=== PATIENT | female | born 1995 | race Caucasian/White ===

== ENCOUNTER → 2020-11-12 | Outpatient (CLI) | payer OTHER ==
[2020-11-13 10:14] LABS: VITAMIN D, 25-HYDROXY 18.8 ng/mL (30.0-100.0)
[2020-11-13 13:09] LABS: ALDOLASE 3.9 U/L (3.3-10.3)
== END ==
LOC: LAB 13:37
PROVIDERS: Internal Medicine
DX: E55.9 Vitamin D deficiency, unspecified (principal); R53.83 Other fatigue; M79.10 Myalgia, unspecified site; M25.50 Pain in unspecified joint; D89.89 Other specified disorders involving the immune mechanism, not elsewhere classified; R76.8 Other specified abnormal immunological findings in serum; M35.00 Sjogren syndrome, unspecified
CPT/HCPCS: 36415; 82085; 82164; 82550; 82728; 84439; 84443; 85652; 86140